=== PATIENT | male | born 1945 | race Caucasian/White ===

== ENCOUNTER 2018-07-04 08:14 | Day surgery (SDC) | payer OTHER ==
[2018-07-03 17:03] LABS: Absolute Lymphocytes (CBC) 2.7 K/uL (0.7-4.9); Absolute Monocytes 1.1 K/uL (0.1-1.3); Absolute Neutrophil 4.5 K/uL (1.8-8.0); Basophils % 0.6 % (0-1.3); Hematocrit 41.6 % (39.6-49.0); Lymphocytes % 30.9 % (15.3-44.8); MPV 8.2 fL (7.6-11.3); Monocytes % 12.5 % (3.3-12.3); RBC Red Blood Cell Count 4.77 M/uL (4.33-5.43)
[2018-07-03 17:30] LABS: Potassium 4.3 mmol/L (3.5-5.1)
--- NOTE | 2018-07-03 17:57 | RAD REPORT ---
EXAM DESCRIPTION: Miriam Hidalgo (2 Views)07/03/2018 5:39 pm CLINICAL HISTORY: Preop for hand surgery COMPARISON: June 28, 2018 FINDINGS: The lungs appear clear of acute infiltrate. The heart is normal size IMPRESSION: No acute abnormalities displayed
--- NOTE | 2018-07-03 17:59 | RAD REPORT ---
EXAM DESCRIPTION: RAD -Hand Left 3 View - 07/03/2018 5:39 pm CLINICAL HISTORY: Left hand pain FINDINGS: No fracture or dislocation is seen. No bony destructive lesions seen
--- NOTE | 2018-07-04 08:03 | EKG ---
Test Date: 2018-07-03 Test Time: 16:51:35 Tile Sorter: BETZAIDA MEASUREMENT RESULTS: Intervals: Rate: 66 LA: 178 QRSD: 92 QT: 406 QTc: 425 [place]: P: 78 LA: 178 QRS: 56 T: 70 INTERPRETIVE STATEMENTS: Normal sinus rhythm Normal ECG Compared to ECG 01/11/2010 06:59:42 No significant changes Electronically Signed On 07-04-18 07:47:36 CDT by Spencer Mccain
--- OUTSIDE RECORDS SUMMARY | 2018-07-04 08:24 | XMS REPORT | Clinical Summary ---
:1945 Author Organization [facility] Address [address] [place] [address] Care Team Providers Name Role Phone Deep Ibrahim MD Primary Care Provider Allergies Active Allergy Reactions Severity Noted Date Comments Penicillins 10/08/2016 Sulfa (Sulfonamide Antibiotics) 10/08/2016 Medications Medication Sig Dispensed Refills Start Date End Date Status simvastatin TAKE ONE 90 tablet 0 09/13/2016 Active (ZOCOR) 40 MG TABLET BY tablet MOUTH ONCE DAILY metoprolol Take 25 mg by 0 Active tartrate mouth 2 (two) (LOPRESSOR) 25 mg times a day. tablet aspirin (ECOTRIN) Take 81 mg by 0 Active 81 MG enteric mouth daily. coated tablet FLUoxetine Take 20 mg by 0 Active (PROzac) 20 MG mouth daily. capsule metoprolol Take 1 tablet 180 tablet 3 06/15/2017 Active tartrate (50 mg total) (LOPRESSOR) 50 mg by mouth 2 tablet (two) times a day. clopidogrel Take 1 tablet 90 tablet 0 01/06/2018 01/06/2019 Active (PLAVIX) 75 mg (75 mg total) tablet by mouth daily. predniSONE 0 01/09/2018 Active (DELTASONE) 10 mg tablet diazePAM (VALIUM) 0 01/05/2018 Active 10 MG tablet clopidogrel Take 1 tablet 90 tablet 3 10/12/2016 10/12/2017 (PLAVIX) 75 mg (75 mg total) tabletIndications: by mouth Coronary artery daily. disease involving [place] heart with angina pectoris, unspecified vessel or lesion type (HCC) clopidogrel Take 1 tablet 90 tablet 0 10/14/2017 01/06/2018 Discontinued (PLAVIX) 75 mg (75 mg total) tablet by mouth daily. Active Problems Problem Noted Date Other hyperlipidemia 01/30/2018 Coronary artery disease involving [place] heart with angina pectoris 12/23/2016 Overview: Added automatically from request for surgery [id number] CAD in [place] artery 12/21/2016 Abnormal EKG 12/21/2016 Stented coronary artery 12/21/2016 SOB (shortness of breath) 12/21/2016 Encounters Date Type Specialty Care Team Description 01/24/2018 Office Visit Cardiology Krishna Villatoro MD CAD in [place] artery (Primary Dx); Other hyperlipidemia; Stented coronary artery 01/06/2018 Refill Cardiology Annamaria Joe MA Med Refill 10/14/2017 Orders Only Cardiology James Solis MA after 07/03/2017 Family History Medical History Relation Name Comments No Known Problems Father No Known Problems Mother Relation Name Status Comments Father Mother Social History Tobacco Use Types Packs/Day Years Used Date Former Smoker Smokeless Tobacco: Never Used Alcohol Use Drinks/Week oz/Week Comments No Sex Assigned at Date Recorded Not on file Job Start Date Occupation Industry Not on file Not on file Not on file Travel History Travel Start Travel End No recent travel history available. Last Filed Vital Signs Vital Sign Reading Time Taken Blood Pressure 145/72 01/24/2018 10:20 AM MATRIX BATH ATTENDANT Pulse 81 01/24/2018 10:20 AM MATRIX BATH ATTENDANT Temperature - - Respiratory Rate - - Oxygen Saturation - - Inhaled Oxygen Concentration - - Weight 113 kg (249 lb) 01/24/2018 10:20 AM MATRIX BATH ATTENDANT Height 188 cm (6' 2") 01/24/2018 10:20 AM MATRIX BATH ATTENDANT Body Mass Index 31.97 01/24/2018 10:20 AM MATRIX BATH ATTENDANT Plan of Treatment Date Type Specialty Care Team Description 01/30/2019 Office Visit Cardiology Krishna Villatoro MD [address] [address] Health Maintenance Due Date Last Done Comments COLON CANCER SCREENING 1996 SHINGLES VACCINES (#1) 1996 65+ PNEUMOCOCCAL VACCINE (1 of 2 - PCV13) 10/06/2011 PNEUMOCOCCAL POLYSACCHARIDE VACCINE AGE 65 AND OVER 10/06/2011 INFLUENZA VACCINE 10/19/2018 Procedures Procedure Name Priority Date/Time Associated Diagnosis Comments ECG 12-LEAD Routine 01/24/2018 10:11 AM CAD in [place] artery Results for this MATRIX BATH ATTENDANT procedure are in the results section. after 07/03/2017 Results ECG 12 lead (01/24/2018 10:11 AM MATRIX BATH ATTENDANT) Ventricular rate 75 [facility] Atrial rate 75 [facility] NH interval 140 [facility] QRSD interval 90 [facility] QT interval 372 [facility] QTC interval 415 [facility] P axis 1 75 [facility] QRS axis 1 -5 [facility] T wave axis 77 [facility] EKG impression Normal sinus rhythm-ST elevation, consider early repolarization , pericarditis, or injury-Abnormal ECG-In automated comparison with ECG of Dec-2016 06:34,-No significant change was found-Electronicall [facility] MUSE y Signed By Bryan Phillip ([id number]) on 01/24/2018 2:20:11 PM Performing Organization Address City/State/Zipcode Phone Number [facility] [address] [place] [address] after 07/03/2017 Insurance Payer Benefit Plan / Group Subscriber ID Type Phone Address MEDICARE MEDICARE PART A AND B xxxxxxxxxx Medicare [place], [place] [employer] INS CO OF xxxxxxxxxx [employer] Advance Directives Patient has advance care planning documents on file. For more information, please contact:Truman Costa[address] [place] [address]
--- OUTSIDE RECORDS SUMMARY | 2018-07-04 08:24 | XMS REPORT ---
:1945 [facility] Address [address] [place] [address] Dr. Maria. [address] [place] [address] Care Team Providers Name Role Phone Unavailable Unavailable Unavailable Payers Payer Name Policy Type Policy Number Effective Date Expiration Date Problems This patient has no known problems. Allergies, Adverse Reactions, Alerts This patient has no known allergies or adverse reactions. Medications This patient has no known medications.
[2018-07-04] MEDS ORDERED: CIPROFLOXACIN 400mg IV 400 MG/200 ML BAG IV ONE (09:29)
[2018-07-04] MEDS ORDERED: Ringers Lactate 1,000 ML IV ONE (09:29)
[2018-07-04] MEDS ORDERED: BUPIVACAINE 0.5% PF 10 ML VIAL ONE (10:02)
[2018-07-04] MEDS ORDERED: PROPOFOL 200 MG/20 ML VIAL IV ONE (10:11)
[2018-07-04] MEDS ORDERED: FENTANYL CITR 100 MCG/2 ML ONE (10:12)
[2018-07-04] MEDS ORDERED: LIDOCAINE 2% MPF 5 ML VIAL ONE (10:12)
[2018-07-04] MEDS ORDERED: MIDAZOLAM HCL 2 MG/2 ML INJ ONE (10:13)
[2018-07-04] MEDS ORDERED: DEXAMETHASONE 4 MG/ML VIAL ONE (10:53)
[2018-07-04] MEDS ORDERED: ONDANSETRON 4 MG/2 ML VIAL ONE (10:53)
[2018-07-04] MEDS ORDERED: EPHEDRINE SULF 50 MG/ML VIAL ONE (10:55)
--- NOTE | 2018-07-04 11:04 | P.BOP ---
Preoperative diagnosis: cellullitis and abscess left index finger Postoperative diagnosis: same Primary procedure: Incision and drainage of left index finger abscess with subQ debridement Secondary procedure: 2.5 x 2 cm Estimated blood loss: <10cc Specimen: culture of purulent fluid Findings: see dictation, pt missing base of nail laterally cant r/o previous trauma. Anesthesia: General Complications: None Transferred to: Recovery Room Condition: Good
[2018-07-04] MEDS ORDERED: BACITRACIN OINTMENT 15 GM TUBE TOP ONE (11:11)
[2018-07-04] MEDS ORDERED: MEPERIDINE HCL 50 MG/ML AMP ONE (11:55)
--- NOTE | 2018-07-10 19:36 | OP ---
Date of Procedure: 07/04/2018 Surgeon: Theodore Lock MD Preoperative Diagnosis: Cellulitis and abscess, left index finger. Postoperative Diagnosis: Cellulitis and abscess, left index finger. Procedure: Incision and drainage of left index finger abscess with subcutaneous debridement of devit alized tissue about an area of 2.5 x 2 cm. Specimen: Culture of the purulent fluid. Anesthesia: General plus local. Findings: This patient has a traumatic wound over his index finger with subsequent cellulitis and ab scess. He is even missing part of the base of the nail, unknown mechanism. Indications: This is the case of a male, who comes to us with a trauma. He stated he was just playi ng around with his dog. He denies any dog bite. He hit something and after that developed an absces s over the finger. He tried to clean that himself, he could not, he tried some antibiotics, he could not, so he came to us with an abscess over the area. The patient was immediately brought to the OR within 7 hours to the treatment of the area and also incision and drainage of an abscess with benefit s, alternatives and risks including but not limited to infection, bleeding, damage to adjacent struct ures, anesthesia complication, nonhealing wound, [place], and even . He also understands this may no t relieve any symptoms. He might need more than one surgical intervention. He understood the import ance of also keeping the area clean and take his antibiotics. He signed a consent. The area of conc en was marked by me and the patient in the holding room. Description Of Procedure: The patient was brought to the operating room, placed in supine position. Left hand was prepped and draped in usual sterile fashion. Left index finger was visualized. We pr oceeded with debridement of the necrotic tissue present over the area of the distal finger. The gene ent is even missing part of the nail, but is at the base of the nail right in the nail bed . I am not sure it actually happened during the trauma since he does not claim any major trauma in t hat area or him just trying to get rid of the abscess. Anyway the area was cleaned. The area over t he necrotic tissue present and the abscess that we found has a piece of that nail. So, I am not sure exactly if a foreign body he had or it was his own nail getting caught and moving into the proximal area. Anyway that area was removed. All the necrotic tissue was removed. Abscess was also opened a nd the loculations were explored opened, cultured. Area was irrigated. Hemostasis was obtained and the area was covered with wet-to-dry dressing. The patient tolerated the procedure well. The patien t was sent to Recovery in stable condition. Disposition: Home. Activity: As tolerated. No heavy lifting. Keep the area clean and dry at all times. He can only w gentry with clean water, soap and running water. Medications: See orders. Followup: Follow up in my office in 1 week. ROCIO/ALVERTO Voice ID: [id number] Report ID: [id number]
== END 2018-07-04 12:49 | disposition home or self-care (01) ==
LOC: OR 08:14
PROVIDERS: ATTEND Surgery
PROC: 0JBK0ZZ Excision of Left Hand Subcutaneous Tissue and Fascia, Open Approach (ICD-10-PCS; principal; 2018-07-04 11:30)
DX: L02.512 Cutaneous abscess of left hand (principal); L03.012 Cellulitis of left finger; I51.9 Heart disease, unspecified; Z79.02 Long term (current) use of antithrombotics/antiplatelets; Z79.899 Other long term (current) drug therapy; Z95.5 Presence of coronary angioplasty implant and graft
CPT/HCPCS: 11042; 93005; 87070; 85025; 80048; 36415; 87205 ×2; 88304; 87075; 87077; 87186; 71046; 73130; J2704; J2250; J3010; J2175; J2405; J0744

== ENCOUNTER 2018-07-17 15:26 | Inpatient (IN) | payer OTHER ==
--- OUTSIDE RECORDS SUMMARY | 2018-07-17 15:29 | XMS REPORT ---
:1945 [facility] Address [address] [place] [address] Dr. Lizarraga [address] [place] [id number] Care Team Providers Name Role Phone Unavailable Unavailable Unavailable Payers Payer Name Policy Type Policy Number Effective Date Expiration Date Problems This patient has no known problems. Allergies, Adverse Reactions, Alerts This patient has no known allergies or adverse reactions. Medications This patient has no known medications.
--- OUTSIDE RECORDS SUMMARY | 2018-07-17 15:29 | XMS REPORT | Clinical Summary ---
:1945 Author Organization [facility] Address [address] [place] [address] Care Team Providers Name Role Phone Deep [...] by mouth Coronary artery daily. disease involving [place] heart with angina pectoris, unspecified vessel or lesion type (HCC) clopidogrel Take 1 tablet 90 tablet 0 10/14/2017 01/06/2018 Discontinued (PLAVIX) 75 mg (75 mg total) tablet by mouth daily. Active Problems Problem Noted Date Other hyperlipidemia 01/30/2018 Coronary artery disease involving [place] heart with angina pectoris 12/23/2016 Overview: Added automatically from request for surgery [id number] CAD in [place] artery 12/21/2016 Abnormal EKG 12/21/2016 Stented coronary artery 12/21/2016 SOB (shortness of breath) 12/21/2016 Encounters Date Type Specialty Care Team Description 01/24/2018 Office Visit Cardiology Krishna Villatoro MD CAD in [place] artery (Primary Dx); Other hyperlipidemia; Stented coronary artery 01/06/2018 Refill Cardiology Annamaria Joe MA Med Refill 10/14/2017 Orders Only Cardiology James Solis MA after 07/16/2017 Family History Medical History Relation Name Comments [...] Taken Blood Pressure 145/72 01/24/2018 10:20 AM CLINICAL AUDITOR Pulse 81 01/24/2018 10:20 AM CLINICAL AUDITOR Temperature - - Respiratory Rate - - Oxygen Saturation - - Inhaled Oxygen Concentration - - Weight 113 kg (249 lb) 01/24/2018 10:20 AM CLINICAL AUDITOR Height 188 cm (6' 2") 01/24/2018 10:20 AM CLINICAL AUDITOR Body Mass Index 31.97 01/24/2018 10:20 AM CLINICAL AUDITOR Plan of Treatment Date Type Specialty Care Team Description 01/30/2019 Office Visit Cardiology Krishna Villatoro MD [address] [address] Health Maintenance Due Date Last Done Comments COLON CANCER SCREENING 1996 SHINGLES VACCINES (#1) 1996 65+ PNEUMOCOCCAL VACCINE (1 of 2 - PCV13) 10/06/2011 PNEUMOCOCCAL POLYSACCHARIDE VACCINE AGE 65 AND OVER 10/06/2011 INFLUENZA VACCINE 10/19/2018 Procedures Procedure Name Priority Date/Time Associated Diagnosis Comments ECG 12-LEAD Routine 01/24/2018 10:11 AM CAD in [place] artery Results for this CLINICAL AUDITOR procedure are in the results section. after 07/16/2017 Results ECG 12 lead (01/24/2018 10:11 AM CLINICAL AUDITOR) Ventricular rate 75 [facility] Atrial rate 75 [facility] CA interval 140 [facility] QRSD interval 90 [...] PM Performing Organization Address City/State/Zipcode Phone Number [facility] [address] [place] [address] after 07/16/2017 Insurance Payer Benefit Plan / Group Subscriber ID Type Phone Address MEDICARE MEDICARE PART A AND B xxxxxxxxxx Medicare [place], [place] [employer] INS CO OF xxxxxxxxxx [employer] Advance Directives Patient has advance care planning documents on file. For more information, please contact:Truman Costa[address] [place] [address]
[2018-07-17] MEDS ORDERED: NA CHLORIDE 0.9% 250 ML ONE ×2 (16:57→22:13)
[2018-07-17] MEDS ORDERED: VANCOMYCIN 1 GM/VIAL ONE (16:57)
[2018-07-17] MEDS ORDERED: Levofloxacin500mg IV 500 MG/100 ML BAG IV ONE (16:57)
--- NOTE | 2018-07-17 17:04 | RAD REPORT ---
EXAM DESCRIPTION: RAD - Hand Left 3 View - 07/17/2018 4:49 pm CLINICAL HISTORY: Pain, swelling and infection left second digit COMPARISON: July 03, 2018 FINDINGS: Bone loss changes have developed in the head of the second middle phalanx and base of the second distal phalanx. There has been further narrowing of the joint space. Transverse fracture of th e distal phalanx near the base is suspected on the lateral view. Soft tissue swelling is present in the mid and distal portions of the second digit. No air or foreign body in the soft tissues. No other acute bone finding. IMPRESSION: Left digit soft tissue swelling new or progressive from July 03. Bone loss changes in the head of the middle phalanx second digit and base of the distal phalanx secon d digit suspicious for osteomyelitis.
[2018-07-17 17:20] LABS: Absolute Lymphocytes (CBC) 2.2 K/uL (0.7-4.9); Absolute Monocytes 1.1 K/uL (0.1-1.3); Absolute Neutrophil 5.4 K/uL (1.8-8.0); Basophils % 0.4 % (0-1.3); Eosinophils % 4.1 % (0-4.4); Hematocrit 42.4 % (39.6-49.0); Lymphocytes % 24.1 % (15.3-44.8); MPV 8.3 fL (7.6-11.3); Monocytes % 11.6 % (3.3-12.3); RBC Red Blood Cell Count 4.86 M/uL (4.33-5.43)
--- NOTE | 2018-07-17 17:24 | P.HP ---
Certification for Inpatient Patient admitted to: Inpatient With expected LOS: >2 Midnights Patient will require the following post-hospital care: None Practitioner: I am a practitioner with admitting privileges, knowledge of patient current condition, hospital course, and medical plan of care. Services: Services provided to patient in accordance with Admission requirements found in Title 42 Section 412.3 of the Code of Federal Regulations Patient History Date of Service: 07/17/18 Primary Care Provider: Dr. Ibrahim Reason for admission: Worsening left 2nd digit cellulitis History of Present Illness: 72-year-old male presented to the emergency room with worsening left hand 2nd digit cellulitis. Patient reports about 2 weeks ago he developed an infection near the nail bed of the 2nd left hand digit.He was treated by Surgery with I/D. He had a follow up with Surgery which showed some mild improvement. Since he last saw Surgery, it appears that the digit has gotten more swollen and erythematous. It has not improved. He was sent to the ER to get further evaluated. In the ER, erythema and exudate was normal. Xray showed left digit soft tissue new from July 03. Bone loss changes in the head of the middle phalanx 2nd digit and base of the distal phalanx 2nd digit is suspicious for osteomyelitis. ER discussed case with hand surgery. Patient to be admitted for further evaluation and treatment. When I saw the patient ER, he appeared comfortable. Patient to remain NPO after midnight for likely surgery tomorrow morning. Patient denies any significant fever, chills, shortness of breath. Patient believes this all started when he was feeding his dogs chicken bones. Allergies Penicillins Allergy (Verified 07/04/18 08:20) Rash Sulfa (Sulfonamide Antibiotics) Allergy (Verified 07/04/18 08:21) Rash Home medications list reviewed: Yes Home Medications: Clopidogrel Bisulfate [Plavix] 1 tab PO DAILY 07/04/18 Codeine/APAP [Tylenol W/Codeine #3 tab] 1 tab PO Q4HP PRN #20 tab 07/04/18 Fluoxetine HCl 1 tab PO DAILY 07/04/18 Metoprolol Succinate [Toprol Xl*] 0.5 PO BID 07/04/18 Mupirocin Oint [Bactroban 2% Ointment] 22 appl TOP BID #1 tube 07/04/18 Simvastatin 1 tab PO DAILY 07/04/18 - Past Medical/Surgical History Diabetic: No -: CAD with prior stent -: Hypertension -: Hyperlipidemia Past Surgical History: Patient denies surgical history Psychosocial/ Personal History: Patient is - Family History Family History: Reviewed- Non-Contributory - Social History Smoking Status: Never smoker Alcohol use: No CD- Drugs: No Caffeine use: Yes Place of Residence: Home Review of Systems General: As per HPI Eyes: Unremarkable ENT: Unremarkable Respiratory: Unremarkable Cardiovascular: Unremarkable Gastrointestinal: Unremarkable Genitourinary: Unremarkable Musculoskeletal: As per HPI Integumentary: As per HPI Neurological: Unremarkable Lymphatics: Unremarkable Physical Examination - Physical Exam General: Alert, In no apparent distress, Oriented x3, Cooperative HEENT: Atraumatic, Normocephalic, PERRLA, Mucous membr. moist/pink Neck: Supple, No Thyromegaly Respiratory: Clear to auscultation bilaterally, Normal air movement Cardiovascular: Normal pulses, Regular rate/rhythm Gastrointestinal: Normal bowel sounds, Soft and benign, Non-distended, No tenderness, No masses, No rebound, No guarding Musculoskeletal: Other (Erythema, exudate noted to the left distal 2nd digit of the hand. 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 Continue IV antibiotic therapy- Levaquin and vancomycin. Case discussed with plastic surgery in the ER. Patient to be NPO after tonight. Anticipate surgery tomorrow morning. Will obtain MRI to further evaluate for possible osteomyelitis. Await further recommendations from plastic surgery. CAD with prior stent: Will hold Plavix at this time. Restart DVT prophylaxis tomorrow after surgery. Hypertension: Will need to obtain and restart home medication. Hyperlipidemia: Will obtain and restart home medication. Discharge Plan: Home Plan to discharge in: Greater than 2 days - Advance Directives Does patient have a Living Will: No Does patient have a Durable POA for Healthcare: No - Code Status/Comfort Care Code Status Assessed: Yes (Patient is full code.) Time Spent Managing Pts Care (In Minutes): 55
--- NOTE | 2018-07-17 17:24 | EDPHYS ---
Physician Documentation [facility] Name: Raymond Chapman Age: 72 yrs Sex: Male : 1945 Arrival Date: 07/17/2018 Time: 15:28 Bed 23 Private MD: Deep Ibrahim ED Physician Triston Kimble HPI: 07/17 17:15 This 72 yrs old Male presents to ER via Ambulatory with complaints of Finger rn Infection. 17:[address] Lock messed with finger 2 weeks ago, thought had either chicken bone rn stuck in skin vs nail infection, now reports increased swelling and drainage to left second digit, can't flex that digit, + low grade fever, no recent abx.. Onset: The symptoms/episode began/occurred 1 week(s) ago. Severity of symptoms: At their worst the symptoms were mild in the emergency department the symptoms are unchanged. The patient has not experienced similar symptoms in the past. The patient has been recently seen by a physician:. Historical: - Allergies: 15:49 PENICILLINS; aa5 15:49 Sulfa (Sulfonamide Antibiotics); aa5 - PMHx: 15:49 Hypertension; Myocardial infarction; aa5 - PSHx: 15:49 Heart stents; aa5 - Immunization history:: Adult Immunizations up to date. - Social history:: Smoking status: Patient/guardian denies using tobacco, but has a distant history of tobacco abuse. - Ebola Screening: : No symptoms or risks identified at this time. - Family history:: not pertinent. - Hospitalizations: : No recent hospitalization is reported. ROS: 17:15 Constitutional: + fever MS/Extremity: + left 2nd digit with swelling/drainage/pain rn Exam: 17:15 Constitutional: This is a well developed, well nourished patient who is awake, alert, rn and in no acute distress. MS/ Extremity: Pulses equal, no cyanosis. + left 2nd digit with fusiform swelling, tenderness along flexor surface, area of fluctuance and pale overlying skin at middle phalanx, distal/dorsal phalanx with open wound and drainage and honey-colored crusting. UNable to flex 2nd digit. No extension toward hand or arm. Vital Signs: 15:49 BP 147 / 79; Pulse 86; Resp 18 S; Temp 99.0(TE); Pulse Ox 97% on R/A; Weight 113.4 kg aa5 (R); Height 6 ft. 2 in. (187.96 cm) (R); Pain 1/10; 16:00 BP 138 / 76; Pulse 81; Resp 18; Pulse Ox 100% ; rv 17:00 BP 145 / 81; Pulse 86; Resp 18; Pulse Ox 97% ; rv 18:00 BP 135 / 68; Pulse 78; Resp 17; Pulse Ox 98% ; rv 19:00 BP 133 / 81; Pulse 86; Resp 18; Pulse Ox 97% ; rv 15:49 Body Mass Index 32.10 (113.40 kg, 187.96 cm) aa5 MDM: 16:13 Patient medically screened. rn 17:15 Differential Diagnosis cellulitis, abscess, flexor tenosynovitis. Data reviewed: vital rn signs, nurses notes, lab test result(s), radiologic studies, plain films, and as a result, I will admit patient. Counseling: I had a detailed discussion with the patient and/or guardian regarding: the historical points, exam findings, and any diagnostic results supporting the discharge/admit diagnosis, lab results, radiology results, the need for further work-up and treatment in the hospital. Response to treatment: the patient's symptoms have mildly improved after treatment, and as a result, I will admit patient. Admission orders: after a detailed discussion of the patient's condition and case, the admit orders are written by me. ED course: . ED course: Consulted with Dr. Rosenberg, agrees to see patient, requests NPO at midnight, abx, admitted to Dr. Simon. . 07/17 16:28 Order name: CBC with Diff; Complete Time: 17:23 rn 07/17 16:28 Order name: Basic Metabolic Panel rn 07/17 16:28 Order name: XRAY Hand LEFT 3 View; Complete Time: 17:05 rn 07/17 16:28 Order name: Blood Culture Adult (2) rn 07/17 16:28 Order name: Procalcitonin rn 07/17 16:28 Order name: Wound Culture rn 07/17 16:28 Order name: IV Start; Complete Time: 17:05 rn Administered Medications: 17:30 Drug: vancoMYCIN 1.5 grams Route: IVPB; Rate: calculated rate; Site: left antecubital; rv 19:28 Follow up: IV Status: Completed infusion rv 19:44 Follow up: IV Intake: 250ml rv 19:44 Drug: LevaQUIN 500 mg Volume: 100 ml; Route: IVPB; Infused Over: 60 mins; Site: left rv antecubital; 19:44 Follow up: IV Status: Infusion continued upon admission rv Disposition: 07/17/18 17:23 Hospitalization ordered by Wale Simon for Inpatient Admission. Preliminary diagnosis are Cellulitis of left finger, Osteomyelitis. - Bed requested for Telemetry/MedSurg (Inpatient). - Status is Inpatient Admission. rv - Condition is Stable. - Problem is an ongoing problem. - Symptoms are unchanged. UTI on Admission? No Signatures: Dispatcher [employer] EDMS Leah Mascorro RN RN dw Triston Kimble MD MD rn Calderon, Audri, RN RN aa5 Manuel Blue RN RN rv Corrections: (The following items were deleted from the chart) 17:20 17:15 Constitutional: This is a well developed, well nourished patient who is awake, rn alert, and in no acute distress. MS/ Extremity: Pulses equal, no cyanosis. + left 2nd digit with fusiform swelling, tenderness along flexor surface, area of fluctuance and pale overlying skin at middle phalanx, distal/dorsal phalanx with open wound and drainage and honey-colored crusting. UNable to flex 2nd digit. rn 17:56 17:23 Hospitalization Ordered by Wale Simon DO for Inpatient Admission. Preliminary dw diagnosis is Cellulitis of left finger; Osteomyelitis. Bed requested for Telemetry/MedSurg (Inpatient). Status is Inpatient Admission. Condition is Stable. Problem is an ongoing problem. Symptoms are unchanged. UTI on Admission? No. rn 19:47 17:56 07/17/2018 17:23 Hospitalization Ordered by Wale Simon DO for Inpatient rv Admission. Preliminary diagnosis is Cellulitis of left finger; Osteomyelitis. Bed requested for Telemetry/MedSurg (Inpatient). Status is Inpatient Admission. Condition is Stable. Problem is an ongoing problem. Symptoms are unchanged. UTI on Admission? No. dw
--- NOTE | 2018-07-17 17:24 | ER ---
Nurse's Notes [facility] Name: Raymond Chapman Age: 72 yrs Sex: Male : 1945 Arrival Date: 07/17/2018 Time: 15:28 Bed 23 Private MD: Deep Ibrahim Diagnosis: Cellulitis of left finger;Osteomyelitis Presentation: 07/17 15:46 Presenting complaint: Patient states: "my doctor sent me to a surgeon and cut my finger aa5 and the infection is just getting worse". Wound noted to left index finger. Transition of care: patient was not received from another setting of care. Onset of symptoms was June 2018. Risk Assessment: Do you want to hurt yourself or someone else? Patient reports no desire to harm self or others. Initial Sepsis Screen: Does the patient meet any 2 criteria? No. Patient's initial sepsis screen is negative. Does the patient have a suspected source of infection? No. Patient's initial sepsis screen is negative. Care prior to arrival: None. 15:46 Method Of Arrival: Ambulatory aa5 15:46 Acuity: HIRO 3 aa5 Historical: - Allergies: 15:49 PENICILLINS; aa5 15:49 Sulfa (Sulfonamide Antibiotics); aa5 - PMHx: 15:49 Hypertension; Myocardial infarction; aa5 - PSHx: 15:49 Heart stents; aa5 - Immunization history:: Adult Immunizations up to date. - Social history:: Smoking status: Patient/guardian denies using tobacco, but has a distant history of tobacco abuse. - Ebola Screening: : No symptoms or risks identified at this time. - Family history:: not pertinent. - Hospitalizations: : No recent hospitalization is reported. Screenin:34 Abuse screen: Denies threats or abuse. Denies injuries from another. Nutritional rv screening: No deficits noted. Tuberculosis screening: No symptoms or risk factors identified. Fall Risk None identified. Assessment: 16:33 General: Appears in no apparent distress. comfortable, Behavior is calm, cooperative. rv Pain: Complains of pain in dorsal aspect of distal phalanx of left index finger. Neuro: Level of Consciousness is awake, alert, obeys commands, Oriented to person, place, time, situation. Cardiovascular: Capillary refill < 3 seconds. Respiratory: Airway is patent. GI: No signs and/or symptoms were reported involving the gastrointestinal system. : No signs and/or symptoms were reported regarding the genitourinary system. EENT: No signs and/or symptoms were reported regarding the EENT system. Derm: Wound noted dorsal aspect of distal phalanx of left index finger. Musculoskeletal: Swelling present in dorsal aspect of distal phalanx of left index finger. Vital Signs: 15:49 BP 147 / 79; Pulse 86; Resp 18 S; Temp 99.0(TE); Pulse Ox 97% on R/A; Weight 113.4 kg aa5 (R); Height 6 ft. 2 in. (187.96 cm) (R); Pain 1/10; 16:00 BP 138 / 76; Pulse 81; Resp 18; Pulse Ox 100% ; rv 17:00 BP 145 / 81; Pulse 86; Resp 18; Pulse Ox 97% ; rv 18:00 BP 135 / 68; Pulse 78; Resp 17; Pulse Ox 98% ; rv 19:00 BP 133 / 81; Pulse 86; Resp 18; Pulse Ox 97% ; rv 15:49 Body Mass Index 32.10 (113.40 kg, 187.96 cm) aa5 ED Course: 15:28 Patient arrived in ED. as 15:28 Deep Ibrahim MD is Private Physician. as 15:46 Arm band placed on. aa5 15:47 Triage completed. aa5 15:58 Manuel Blue, ROSEMARY is Primary Nurse. rv 16:13 Triston Kimble MD is Attending Physician. rn 16:34 Patient has correct armband on for positive identification. Bed in low position. Call rv light in reach. Side rails up X 1. Adult w/ patient. Pulse ox on. NIBP on. 16:49 XRAY Hand LEFT 3 View In Process Unspecified. EDMS 17:01 Initial lab(s) drawn, by me, sent to lab. First set of blood cultures drawn by me. lt1 17:10 Missed attempt(s): 20 gauge in right antecubital area. lt1 17:11 Inserted saline lock: 20 gauge in left antecubital area, using aseptic technique. lt1 17:11 Wound culture swab sent to lab. lt1 17:22 Wale Simon DO is Hospitalizing Provider. rn 17:26 Second set of blood cultures drawn nessa. rv 19:46 No provider procedures requiring assistance completed. Patient admitted, IV remains in rv place. Administered Medications: 17:30 Drug: vancoMYCIN 1.5 grams Route: IVPB; Rate: calculated rate; Site: left antecubital; rv 19:28 Follow up: IV Status: Completed infusion rv 19:44 Follow up: IV Intake: 250ml rv 19:44 Drug: LevaQUIN 500 mg Volume: 100 ml; Route: IVPB; Infused Over: 60 mins; Site: left rv antecubital; 19:44 Follow up: IV Status: Infusion continued upon admission rv Intake: 19:44 IV: 250ml; Total: 250ml. rv Outcome: 17:23 Decision to Hospitalize by Provider. rn 19:46 Admitted to Med/surg accompanied by nurse, via wheelchair, room 207, with chart, Report rv called to [facility] 19:46 Condition: good 19:46 Instructed on the need for admit, Demonstrated understanding of instructions. 19:47 Patient left the ED. rv Signatures: Dispatcher [employer] EDMS Carol Lock Roman, MD MD rn Calderon, Audri, RN RN aa5 Manuel Blue RN RN rv Tran, Leah lt1 Corrections: (The following items were deleted from the chart) 15:50 15:49 BP 147 / 79; Pulse 86bpm; Resp 18bpm; Spontaneous; Pulse Ox 97% RA; Temp 99.0F aa5 Temporal; 113.4 kg Reported; Height 6 ft. 2 in. Reported; BMI: 32.1; aa5
[2018-07-17 17:35] LABS: Potassium 3.9 mmol/L (3.5-5.1)
[2018-07-17] MEDS ORDERED: HYDROCODONE/APAP 7.5/325 MG TAB PO PRN (20:08)
[2018-07-17] MEDS ORDERED: TRAMADOL HCL 50 MG TAB PO PRN (20:08)
[2018-07-17] MEDS: Levofloxacin500mg IV 500 MG/100 ML BAG IV SCH (20:08)
[2018-07-17] MEDS ORDERED: MORPHINE 2 MG/ML SYR IV PRN (20:08)
[2018-07-17] MEDS ORDERED: ONDANSETRON 4 MG/2 ML VIAL IV PRN (20:08)
[2018-07-17] MEDS ORDERED: HYDRALAZINE HCL 20 MG/ML VIAL IV PRN (20:08)
[2018-07-17] MEDS ORDERED: VANCOMYCIN 500 MG in NA CHLORIDE 0.9% 100 ML IVPB ONE (20:45)
[2018-07-17] MEDS ORDERED: ATORVASTATIN 10 MG TAB PO SCH (21:00)
[2018-07-17] MEDS ORDERED: VANCOMYCIN 500 MG/VIAL ONE (21:51)
[2018-07-17] MEDS: METOPROLOL TAR 25 MG TAB PO SCH (21:54)
[2018-07-18] MEDS: VANCOMYCIN 2 GM in NA CHLORIDE 0.9% 500 ML IVPB SCH ×2 (05:00→17:22)
[2018-07-18] MEDS: METOPROLOL TAR 25 MG TAB PO SCH ×2 (05:31→17:23)
[2018-07-18] MEDS ORDERED: VANCOMYCIN 1 GM/VIAL ONE (05:36)
[2018-07-18] MEDS ORDERED: NA CHLORIDE 0.9% 500 ML ONE (05:39)
[2018-07-18 05:50] LABS: Absolute Lymphocytes (CBC) 1.8 K/uL (0.7-4.9); Absolute Monocytes 0.9 K/uL (0.1-1.3); Absolute Neutrophil 3.8 K/uL (1.8-8.0); Basophils % 0.6 % (0-1.3); Eosinophils % 5.1 % (0-4.4); Hematocrit 39.2 % (39.6-49.0); Lymphocytes % 26.6 % (15.3-44.8); MPV 8.1 fL (7.6-11.3); Monocytes % 12.8 % (3.3-12.3); RBC Red Blood Cell Count 4.48 M/uL (4.33-5.43)
[2018-07-18 06:08] LABS: BUN Blood Urea Nitrogen 15 mg/dL (7-18); Bicarbonate 29 mmol/L (21-32); Glucose Level 128 mg/dL (74-106); Magnesium 2.1 mg/dL (1.8-2.4); Potassium 4.3 mmol/L (3.5-5.1); Sodium Level 141 mmol/L (136-145)
[2018-07-18] MEDS ORDERED: Ringers Lactate 1,000 ML IV ONE (10:55)
[2018-07-18] MEDS ORDERED: PROPOFOL 200 MG/20 ML VIAL IV ONE (11:22)
[2018-07-18] MEDS ORDERED: FENTANYL CITR 100 MCG/2 ML ONE (11:23)
[2018-07-18] MEDS ORDERED: MIDAZOLAM HCL 2 MG/2 ML INJ ONE (11:24)
[2018-07-18] MEDS ORDERED: LIDOCAINE 2% MPF 5 ML VIAL ONE (11:24)
[2018-07-18] MEDS ORDERED: ONDANSETRON 4 MG/2 ML VIAL ONE ×2 (11:35→12:37)
[2018-07-18] MEDS ORDERED: GLYCOPYRROLATE 0.2 MG/ML SYR ONE (11:56)
[2018-07-18] MEDS: HYDROMORPHONE HCL 2 MG/ML inj ONE ×4 (12:03→12:18)
--- NOTE | 2018-07-18 12:20 | P.PN ---
Subjective Date of Service: 07/18/18 Primary Care Provider: Dr. Ibrahim Chief Complaint: Worsening left 2nd digit cellulitis Subjective: Other (Patient had surgery today) Physical Examination - Vital Signs Temperature: 97.1 F Blood Pressure: 146/80 Pulse: 81 Respirations: 16 Pulse Ox (%): 95 - Physical Exam General: Alert, In no apparent distress, Oriented x3, Oriented x1, Cooperative HEENT: Atraumatic Neck: Supple Respiratory: Clear to auscultation bilaterally, Normal air movement Cardiovascular: Regular rate/rhythm Integumentary: Other (Hand bandaged) - Studies Laboratory Data (last 24 hrs) 07/17/18 17:01: Sodium 141, Potassium 3.9, BUN 17, Creatinine 0.87, Glucose 115 H 07/17/18 17:01: WBC 9.0, Hgb 14.1, Hct 42.4, Plt Count 290 Medications List Reviewed: Yes Assessment & Plan Discharge Plan: Home Plan to discharge in: Greater than 2 days Physician Review Additional Text: Impression: Left hand 2nd digit cellulitis suspicious for osteomyelitis CAD with prior stent Hypertension Hyperlipidemia Plan: Left hand 2nd digit cellulitis suspicious for osteomyelitis: Patient had surgery today. Will continue with IV antibiotic therapy. Case discussed with infectious disease. Will get CT scan of hand to rule out osteomyelitis. Patient will likely have another surgery. Will discuss case further with hand surgery/plastic surgery to address plan of care. CAD with prior stent: Restart DVT prophylaxis, will hold Plavix at this time as the patient will continue with surgery likely. Hypertension: Restart home medication. Hyperlipidemia: Restart home medication. Time Spent Managing Pts Care (In Minutes): 55
[2018-07-18] MEDS ORDERED: KETOROLAC 30 MG/ML INJ ONE (12:36)
[2018-07-18] MEDS ORDERED: CODEINE 30MG/APAP 300MG TAB PO PRN (13:08)
[2018-07-18] MEDS ORDERED: MEPERIDINE HCL 50 MG/ML AMP IM PRN (13:09)
--- NOTE | 2018-07-18 15:42 | RAD REPORT ---
EXAM DESCRIPTION: CT - Hand Left Wo Con - 07/18/2018 3:10 pm CLINICAL HISTORY: Hand pain and swelling COMPARISON: July 17, 2018 x-ray TECHNIQUE: Computed axial tomography left hand obtained with coronal and sagittal reconstruction All CT scans are performed using dose optimization technique as appropriate and may include automated exposure control or mA/KV adjustment according to patient size. FINDINGS: A drain has been placed into the soft tissues of the second digit. A debridement involves the soft tissues of the second distal phalanx. Bony destruction involves the proximal aspect of the second distal phalanx and distal aspect of the s econd middle phalanx compatible with osteomyelitis. Indistinctness involves the cortex of the proxima l aspect of the second middle phalanx suspicious for osteomyelitis. IMPRESSION: . Osteomyelitis involving the second middle and distal phalanx
[2018-07-18] MEDS: ENOXAPARIN 40 MG/0.4 ML SQ SCH (17:23)
--- NOTE | 2018-07-18 19:57 | CON ---
Date of Consultation: 07/18/2018 History Of Present Illness: The patient is here for left hand cellulitis and possible left hand inde x finger osteomyelitis. Denies any headache, nausea, vomiting, chest pain, abdominal pain, constipat ion, or diarrhea. The patient has significant past medical history of coronary artery disease, hyper tension, hyperlipidemia. Denies any problems at this time. Past Medical History: As per HPI. Social History: Nonsmoker, nondrinker. Family History: Noncontributory. Medications: Levaquin and vancomycin. Allergies: PENICILLIN, SULFA DRUGS. Review of Systems: A 10-point review was performed. Physical Examination: General: This is a 72-year-old male, lying in bed. Denies any headache, not in any acute distress. HEENT: Unremarkable. Neck: Supple. Lungs: Basal crackles. Heart: S1, S2. Regular. Abdomen: Soft, nontender. Bowel sounds present. Extremity: No edema. Left hand in surgical wound dressing. Laboratory Data: Shows WBC 6.9, hemoglobin 13.5, platelets 258. Chemistry shows sodium 141, potassi um 4.3, chloride 106, bicarb 29, BUN 15, creatinine 0.78, glucose is 128. X-ray of the hand shows left digit soft tissue swelling, new or progressive from July 03, bone loss changes in the head of the middle phalanx, second digit and base of the distal phalanx second digit s uspicious for osteomyelitis. Assessment And Plan: Left hand index finger possibly osteomyelitis. Recommend to get a CT scan if t he patient cannot go through MRI. Continue antibiotic 6 weeks. If osteomyelitis is positive, otherw ise 2-3 weeks depending on the patient response to medication. We will follow the patient closely. Thank you Dr. Simon for consult. NF/MODL Voice ID: [id number] Report ID: [id number]
[2018-07-18] MEDS ORDERED: PROMETHAZINE 25 MG/ML VIAL IV ONE (20:57)
[2018-07-18] MEDS: Levofloxacin500mg IV 500 MG/100 ML BAG IV SCH (21:05)
[2018-07-18] MEDS: ATORVASTATIN 20 MG TAB PO SCH (21:09)
[2018-07-19 04:18] LABS: Absolute Lymphocytes (CBC) 1.9 K/uL (0.7-4.9); Absolute Monocytes 0.9 K/uL (0.1-1.3); Absolute Neutrophil 5.9 K/uL (1.8-8.0); Basophils % 1.3 % (0-1.3); Eosinophils % 1.9 % (0-4.4); Hematocrit 37.3 % (39.6-49.0); Lymphocytes % 21.1 % (15.3-44.8); MPV 8.3 fL (7.6-11.3); Monocytes % 10.1 % (3.3-12.3); RBC Red Blood Cell Count 4.22 M/uL (4.33-5.43)
[2018-07-19 04:32] LABS: BUN Blood Urea Nitrogen 14 mg/dL (7-18); Bicarbonate 29 mmol/L (21-32); Glucose Level 110 mg/dL (74-106); Magnesium 1.9 mg/dL (1.8-2.4); Potassium 4.5 mmol/L (3.5-5.1); Sodium Level 141 mmol/L (136-145)
[2018-07-19] MEDS: VANCOMYCIN 2 GM in NA CHLORIDE 0.9% 500 ML IVPB SCH ×2 (05:54→16:42)
[2018-07-19] MEDS: METOPROLOL TAR 25 MG TAB PO SCH ×2 (05:55→17:03)
[2018-07-19] MEDS: ACETAMINOPHEN 500 MG TAB PO PRN ×2 (05:58→14:46)
[2018-07-19] MEDS: ENOXAPARIN 40 MG/0.4 ML SQ SCH (08:11)
[2018-07-19] MEDS: FLUOXETINE 20 MG CAP PO SCH (08:11)
--- NOTE | 2018-07-19 08:47 | HP ---
Date of Admission: 07/17/2018 History Of Present Illness: A 72-year-old, white male, right-hand dominant, who injured his left ind ex finger several months ago with a fishbone over the nail bed area on the radial side. Tetanus stat us is up to date. He underwent a debridement about [address] Lock, and now presents wit h more swelling of the finger. He is unable to flex the DIP of fingers. He has fusiform swelling. Past Medical History: He has history of no medical problems. Past Surgical History: He has had stents x2 to the heart. Social History: Does not smoke. Does not drink. Medications: Being on penicillin and Plavix, metoprolol, simvastatin. Physical Examination: General: Height 6 feet 2 inches, weight 254 pounds. On examination he has a fusiform swelling of the finger, mostly over the distal phalanx and middle ph alanx. Pain on pressure over the volar surface, some white discoloration on the flexor surface, and erosions over the radial aspect of the nail plate area. The skin appears to be missing. Plan: The plan will be exploration, debridement, and removal of any foreign body. IRMA/ALVERTO Voice ID: [id number]
--- NOTE | 2018-07-19 08:47 | OP ---
Surgeon: Pedro Rosenberg MD Assembler Installer Structures: Dale. Preoperative Diagnosis: Infected left index finger. Postoperative Diagnosis: Infected left index finger. Procedure Performed: Debridement of skin, subcutaneous tissue and bone. Anesthesia: General. Procedure In Detail: After satisfactory induction of general anesthesia, left hand prepped with Beta dine scrub, Betadine paint, dry sterile drapes applied in the usual manner. The arm was elevated. T o[place]et was inflated to 250 mmHg. Hand placed on the [place] table. Periosteal elevator was used to remove nail plate. Then, the wound over the radial aspect of the index finger was opened and comm unicated with the corner of the nail bed on the radial side. The wound was through and through into the flexor surface, skin was debrided on flexor surface and the open wound was present about 3 mm in diameter there. The 2 wounds communicated. A periosteal elevator and a curette were used to debride the bone. The bone was quite soft. Cultures were taken. Then, the wound jet lavaged, irrigated wi th 3 L of dilute Betadine solution. Tourniquet released. The [place] drain was passed through the o penings and tied to itself. Dressing consisted of 2-inch Amanuel. The patient tolerated the procedure well and returned to Recovery. IRMA/ALVERTO Voice ID: [id number] Report ID: [id number]
--- NOTE | 2018-07-19 13:17 | P.PN ---
Subjective Date of Service: 07/19/18 Primary Care Provider: Dr. Ibrahim Chief Complaint: Worsening left 2nd digit cellulitis Subjective: Improving (Patient doing well.) Physical Examination - Vital Signs Temperature: 99.7 F Blood Pressure: 121/58 Pulse: 67 Respirations: 17 Pulse Ox (%): 92 - Physical Exam General: Alert, In no apparent distress, Oriented x3, Cooperative HEENT: Atraumatic Neck: Supple Respiratory: Clear to auscultation bilaterally Cardiovascular: Normal pulses, Regular rate/rhythm Gastrointestinal: Normal bowel sounds, No tenderness, No masses, No rebound, No guarding Integumentary: Other (Hand bandaged.) - Studies Microbiology Data (last 24 hrs): 07/17/18 17:01 Wound - Left Finger Gram Stain - Final 07/17/18 17:01 Wound - Left Finger Culture & Sensitivity - Final Medications List Reviewed: Yes Assessment & Plan Discharge Plan: Home Plan to discharge in: 24 Hours Physician Review Additional Text: Impression: Left hand 2nd digit cellulitis with osteomyelitis status post irrigation and debridement postop day 1 CAD with prior stent Hypertension Hyperlipidemia Plan: Left hand 2nd digit cellulitis with osteomyelitis status post irrigation and debridement postop day 1: Patient had surgery yesterday. Continue with IV antibiotic therapy. Case discussed with plastic surgery and infectious disease. Patient with osteomyelitis. Patient requires long-term IV antibiotic therapy. Case discussed with patient. Will pursue IV antibiotic therapy at home for 6 weeks. Will change to IV vancomycin. PICC line to be ordered. Home health to be arranged for continued IV antibiotic therapy with pharmacy to adjust. Patient will need a follow up with plastic surgery next Tuesday. Anticipate discharge in the next 24 hr. CAD with prior stent: Restart Plavix. Patient on DVT prophylaxis. Hypertension: Continue with home medication. Hyperlipidemia: Continue home medication. Time Spent Managing Pts Care (In Minutes): 55
--- NOTE | 2018-07-19 17:53 | PN ---
Subjective: The patient is sitting in bed. Denies any headache, nausea, vomiting, chest pain, abdom inal pain, constipation, or diarrhea. Objective: Vital Signs: Temperature 98, pulse 67, respiration 18, blood pressure 129/60. Lungs: Basal crackles. Heart: S1, S2. Regular. Abdomen: Soft, nontender. Bowel sounds present. Extremity: Left hand wound noted with a [place] dressing in place and nail is missing with nailbed e xposed. Laboratory Data: WBC 9000, hemoglobin 12.5, platelets over 248. Chemistry shows sodium 141, potassi um 4.5, chloride 106, bicarb 29, BUN 14, creatinine 0.8, glucose 110. Cultures are negative. Curren t antibiotic includes Levaquin and vancomycin. Assessment And Plan: Left hand cellulitis with osteomyelitis of the index finger. Continue antibiot ic, total course of 6 weeks. We will follow the patient as needed. Labs to be done twice a week arshi royce the patient is on antibiotics, CBC and BMP. NF/MODL Voice ID: [id number] Report ID: [id number]
[2018-07-19] MEDS: ATORVASTATIN 20 MG TAB PO SCH (21:32)
[2018-07-19] MEDS: MUPIROCIN 2% OINT 22GM TUBE TOP SCH (21:33)
[2018-07-20] MEDS: VANCOMYCIN 2 GM in NA CHLORIDE 0.9% 500 ML IVPB SCH (04:34)
[2018-07-20] MEDS: METOPROLOL TAR 25 MG TAB PO SCH (04:35)
[2018-07-20 05:00] LABS: Absolute Lymphocytes (CBC) 2.1 K/uL (0.7-4.9); Absolute Monocytes 0.9 K/uL (0.1-1.3); Absolute Neutrophil 3.2 K/uL (1.8-8.0); Basophils % 0.7 % (0-1.3); Eosinophils % 5.1 % (0-4.4); Hematocrit 37.7 % (39.6-49.0); MPV 8.1 fL (7.6-11.3); Monocytes % 13.6 % (3.3-12.3); RBC Red Blood Cell Count 4.27 M/uL (4.33-5.43)
[2018-07-20 05:13] LABS: BUN Blood Urea Nitrogen 12 mg/dL (7-18); Bicarbonate 31 mmol/L (21-32); Glucose Level 117 mg/dL (74-106); Magnesium 2.1 mg/dL (1.8-2.4); Potassium 3.8 mmol/L (3.5-5.1); Sodium Level 142 mmol/L (136-145)
[2018-07-20] MEDS: ACETAMINOPHEN 500 MG TAB PO PRN ×2 (06:09→11:02)
[2018-07-20] MEDS: FLUOXETINE 20 MG CAP PO SCH (08:35)
[2018-07-20] MEDS: ENOXAPARIN 40 MG/0.4 ML SQ SCH (08:35)
[2018-07-20] MEDS: MUPIROCIN 2% OINT 22GM TUBE TOP SCH (08:36)
[2018-07-20] MEDS ORDERED: POTASSIUM 25 MEQ EFFERV TAB PO ONE (09:00)
[2018-07-20] MEDS ORDERED: CLOPIDOGREL 75 MG TABLET PO SCH (09:00)
--- NOTE | 2018-07-20 09:58 | RAD REPORT ---
EXAM DESCRIPTION: XR Chest Single View CLINICAL HISTORY: 72 years Male PICC Placement TECHNIQUE: One view of the chest. COMPARISON: No prior exams provided for comparison. FINDINGS: There is a right-sided PICC line with its tip projecting over the distal SVC. The lungs are clear without focal consolidation, effusion, or pneumothorax. Aortic atherosclerosis. Otherwise normal cardiomediastinal silhouette. No visualized acute osseous ab normalities. IMPRESSION: No acute cardiopulmonary abnormalities. Right-sided PICC line in good position. Electronically signed by: Alisha Madison MD 07/19/2018 10:34 PM CDT Due to temporary technical issues with the PACS/Fluency reporting system, reports are being signed by the in house radiologist as a courtesy to ensure prompt reporting. The interpreting radiologist is f ully responsible for the content of the report.
--- NOTE | 2018-07-20 10:32 | P.DS ---
Admission Date: 07/17/18 Discharge Date: 07/20/18 Primary Care Provider: Dr. Ibrahim Disposition: DC HOME/HOME HEALTH CARE Discharge Condition: GOOD Reason for Admission: Worsening left 2nd digit cellulitis Consultations: Plastic Surgery-Dr. Rosenberg Infectious disease-Dr. Henradez Procedures: CT scan: COMPARISON: July 17, 2018 x-ray TECHNIQUE: Computed axial tomography left hand obtained with coronal and sagittal reconstruction All CT scans are performed using dose optimization technique as appropriate and may include automated exposure control or mA/KV adjustment according to patient size. FINDINGS: A drain has been placed into the soft tissues of the second digit. A debridement involves the soft tissues of the second distal phalanx. Bony destruction involves the proximal aspect of the second distal phalanx and distal aspect of the second middle phalanx compatible with osteomyelitis. Indistinctness involves the cortex of the proximal aspect of the second middle phalanx suspicious for osteomyelitis. IMPRESSION: . Osteomyelitis involving the second middle and distal phalanx Surgery: Surgeon: Pedro Rosenberg MD Fire Sprinkler Installer: Dale. Preoperative Diagnosis: Infected left index finger. Postoperative Diagnosis: Infected left index finger. Procedure Performed: Debridement of skin, subcutaneous tissue and bone. Anesthesia: General. Procedure In Detail: After satisfactory induction of general anesthesia, left hand prepped with Betadine scrub, Betadine paint, dry sterile drapes applied in the usual manner. The arm was elevated. Tourniquet was inflated to 250 mmHg. Hand placed on the [place] table. Periosteal elevator was used to remove nail plate. Then, the wound over the radial aspect of the index finger was opened and communicated with the corner of the nail bed on the radial side. The wound was through and through into the flexor surface, skin was debrided on flexor surface and the open wound was present about 3 mm in diameter there. The 2 wounds communicated. A periosteal elevator and a curette were used to debride the bone. The bone was quite soft. Cultures were taken. Then, the wound jet lavaged, irrigated with 3 L of dilute Betadine solution. Tourniquet released. The [place] drain was passed through the openings and tied to itself. Dressing consisted of 2-inch Amanuel. The patient tolerated the procedure well and returned to Recovery. PICC line placement Medical problem list: Left hand 2nd digit cellulitis with osteomyelitis status post debridement of skin, subcutaneous tissue and bone CAD with prior stent Hypertension Hyperlipidemia Brief History of Present Illness: 72-year-old male presented to the emergency room with worsening left hand 2nd digit cellulitis. Patient reports about 2 weeks ago he developed an infection near the nail bed of the 2nd left hand digit.He was treated by Surgery with I/D. He had a follow up with Surgery which showed some mild improvement. Since he last saw Surgery, it appears that the digit has gotten more swollen and erythematous. It has not improved. He was sent to the ER to get further evaluated. In the ER, erythema and exudate was normal. Xray showed left digit soft tissue new from July 03. Bone loss changes in the head of the middle phalanx 2nd digit and base of the distal phalanx 2nd digit is suspicious for osteomyelitis. ER discussed case with hand surgery. Patient to be admitted for further evaluation and treatment. When I saw the patient ER, he appeared comfortable. Patient to remain NPO after midnight for likely surgery tomorrow morning. Patient denies any significant fever, chills, shortness of breath. Patient believes this all started when he was feeding his dogs chicken bones. Hospital Course: Patient presented with left hand 2nd digit cellulitis with osteomyelitis. Patient was seen evaluated by plastic surgery. Surgery was recommended and performed. Debridement of skin, subcutaneous tissue and bone was performed. CT scan post operatively showed osteomyelitis involving the 2nd middle and distal phalanx. Infectious Disease was consulted. Infectious disease recommended IV antibiotic therapy for 6 weeks. PICC line was placed. Arrangements for home health, home wound care, and continued IV antibiotic therapy-vancomycin for 6 weeks for done. At discharge she will continue with IV antibiotic therapy for [address] weeks[address] line in place. PICC line care to be continued. Infusion company-pharmacy will monitor and adjust medication. Patient will have lab-BMP and vanc troughs twice a week. Recommend to follow up with his PCP in 1 week to follow up his care. PCP is aware of hospitalization and plan of care. Recommend to follow up with plastic surgery next Tuesday to further address. Prior to discharge patient and family was taught on wound care. Patient with history of CAD with prior stent, hypertension and hyperlipidemia. At discharge patient will continue with Plavix 75 mg daily, Zocor 40 mg daily, and Toprol XL 25 mg 1 pill twice daily. Further adjustment can be done by his PCP. Vital Signs/Physical Exam: Temp Pulse Resp BP Pulse Ox 98.0 F 60 18 174/79 H 96 07/20/18 08:00 07/20/18 08:00 07/20/18 08:00 07/20/18 08:00 07/20/18 08:00 General: Alert, In no apparent distress, Oriented x3, Cooperative HEENT: Atraumatic Neck: Supple Respiratory: Clear to auscultation bilaterally, Normal air movement Cardiovascular: Normal pulses, Regular rate/rhythm Gastrointestinal: Normal bowel sounds, Soft and benign, Non-distended Musculoskeletal: Other (finger is bandaged. ) Integumentary: No erythema, No warmth, No cyanosis Neurological: Normal speech, Normal strength at 5/5 x4 extr, Normal tone, Normal affect Laboratory Data at Discharge: WBC 6.5 K/uL (4.3-10.9) D 07/20/18 04:30 Hgb 12.8 g/dL (13.6-17.9) L 07/20/18 04:30 Hct 37.7 % (39.6-49.0) L 07/20/18 04:30 Plt Count 219 K/uL (152-406) 07/20/18 04:30 Sodium 142 mmol/L (136-145) 07/20/18 04:30 Potassium 3.8 mmol/L (3.5-5.1) 07/20/18 04:30 BUN 12 mg/dL (7-18) 07/20/18 04:30 Creatinine 0.78 mg/dL (0.55-1.3) 07/20/18 04:30 Glucose 117 mg/dL (74-106) H 07/20/18 04:30 Magnesium 2.1 mg/dL (1.8-2.4) 07/20/18 04:30 Home Medications: RX: Clopidogrel Bisulfate [Plavix] 1 tab PO DAILY 07/04/18 RX: Fluoxetine HCl 1 tab PO DAILY 07/04/18 RX: Metoprolol Succinate [Toprol Xl*] 0.5 tab PO BID 07/04/18 RX: Mupirocin Oint [Bactroban 2% Ointment*] 22 appl TOP BID #1 tube 07/04/18 RX: Simvastatin 1 tab PO BEDTIME 07/04/18 Patient Discharge Instructions: 1. Recommended follow up with PCP in 1 week to follow up this hospitalization. 2. Patient presented with left hand 2nd digit cellulitis with osteomyelitis. Patient was seen evaluated by plastic surgery. Surgery was recommended and performed. Debridement of skin, subcutaneous tissue and bone was performed. CT scan post operatively showed osteomyelitis involving the 2nd middle and distal phalanx. Infectious Disease was consulted. Infectious disease recommended IV antibiotic therapy for 6 weeks. PICC line was placed. Arrangements for home health, home wound care, and continued IV antibiotic therapy-vancomycin for 6 weeks for done. At discharge she will continue with IV antibiotic therapy for [address] weeks[address] line in place. PICC line care to be continued. Infusion company-pharmacy will monitor and adjust medication. Patient will have lab-BMP and vanc troughs twice a week. Recommend to follow up with his PCP in 1 week to follow up his care. PCP is aware of hospitalization and plan of care. Recommend to follow up with plastic surgery next Tuesday to further address. Prior to discharge patient and family was taught on wound care. 3. Patient with history of CAD with prior stent, hypertension and hyperlipidemia. At discharge patient will continue with Plavix 75 mg daily, Zocor 40 mg daily, and Toprol XL 25 mg 1 pill twice daily. Further adjustment can be done by his PCP. Diet: AHA Activity: Ad geoff Time spent managing pt's care (in minutes): 55
== END 2018-07-20 11:45 | disposition home health service (06) | DRG 514 ==
LOC: ER 15:26 → ERHOLD 17:11 → 2ND 19:36
PROVIDERS: ADMIT Family Medicine; ATTEND Family Medicine
PROC: 0PDV0ZZ Extraction of Left Finger Phalanx, Open Approach (ICD-10-PCS; principal; 2018-07-18 10:45)
PROC: 02HV33Z Insertion of Infusion Device into Superior Vena Cava, Percutaneous Approach (ICD-10-PCS; 2018-07-19)
DX: M86.9 Osteomyelitis, unspecified (principal); L03.012 Cellulitis of left finger; I25.10 Atherosclerotic heart disease of native coronary artery without angina pectoris; I10 Essential (primary) hypertension; E78.5 Hyperlipidemia, unspecified; Z95.5 Presence of coronary angioplasty implant and graft; Z88.0 Allergy status to penicillin; Z88.2 Allergy status to sulfonamides
CPT/HCPCS: 36415; 71045; 73200; 80048; 80202; 83735; 84145; 85025; 87040; 87070; 87075; 87077; 87186; 87205; 88304; 88311; 96365; 96366; 96375; 99285; J1170; J1650; J2250; J2270; J2405; J2550; J2704; J3010